=== PATIENT | male | born 1980 | race Two or more races ===

== ENCOUNTER 2019-03-09 22:11 | Emergency (ER) | payer OTHER ==
[~2019-03-09] VITALS: Ht 165.1 cm; Wt 72.6 kg
[2019-03-09 23:56] VITALS: BP 122/71
== END 2019-03-09 23:56 ==
LOC: ER 22:17
DX: Z02.89 Encounter for other administrative examinations (principal); V49.69XA Unspecified car occupant injured in collision with other motor vehicles in traffic accident, initial encounter; Y93.89 Activity, other specified; Y92.413 State road as the place of occurrence of the external cause; Y99.8 Other external cause status